=== PATIENT | male | born 1995 | race African-American/Black ===

== ENCOUNTER 2020-04-04 21:39 | Emergency (ER) | payer OTHER ==
[2020-04-05 18:30] LABS: SARS-CoV-2 MS2 Positive; SARS-CoV-2 N Gene Negative; SARS-CoV-2 S Gene Negative; SARS-CoV-2 by NAA Not Detected (NotDetected); SARS-CoV-2 orf1ab Negative
== END 2020-04-04 22:55 | disposition home or self-care (01) ==
LOC: NAV ERS 21:39
DX: U07.1 COVID-19 (principal); R11.2 Nausea with vomiting, unspecified; R19.7 Diarrhea, unspecified
CPT/HCPCS: 87635; 99284; U0003